=== PATIENT | male | born 1975 | race Two or more races ===

== ENCOUNTER 2023-02-12 03:09 | Emergency (ER) | payer MEDICAID ==
[~2023-02-12] VITALS: Ht 175.3 cm; Wt 108.2 kg
[2023-02-12] MEDS ORDERED: amLODIPine BESYLATE 5 MG TAB PO ONE (03:45)
[2023-02-12 04:29] LABS: Albumin 3.2 g/dL (3.4-5.0); BUN/Creatinine Ratio 10.9 (10.0-20.0); Calcium 8.6 mg/dL (8.5-10.1); Potassium 4.5 mmol/L (3.5-5.1)
[2023-02-12 04:31] LABS: Bilirubin, Total 0.5 mg/dL (0.2-1.0); Total Protein 6.9 g/dL (6.4-8.2)
[2023-02-12 04:35] LABS: Eosinophils # (auto) 0 10 ^3/uL (0-0.8); Hemoglobin 15.8 g/dL (13.5-17.5); Lymphocytes # (auto) 2.1 10 ^3/uL (0.4-5.4); Monocytes # (auto) 0.5 10 ^3/uL (0-1.3); Neutrophils # (auto) 2.2 10 ^3/uL (1.6-8.6); Nucleated Red Blood Cells % 0.1 %
[2023-02-12 04:38] LABS: Basophils # (auto) 0.1 10 ^3/uL (0-0.2); Basophils % (auto) 1.1 % (0.0-2.0); Hematocrit 46.4 % (41.0-53.0); Lymphocytes % (auto) 42.7 % (10.0-50.0); Mean Corpuscular Hemoglobin 34.4 pg (28.0-32.0); Mean Corpuscular Hgb Conc. 34.1 g/dL (32.0-36.0); Monocytes % (auto) 10.2 % (0.0-12.0); Red Blood Cells 4.59 10^6/uL (4.5-5.90); Red Cell Distribution Width 14.6 % (11.8-14.3); White Blood Cell 4.9 10^3/uL (4.4-10.8)
[2023-02-12 06:00] VITALS: BP 156/106
[2023-02-12] MEDS ORDERED: SODIUM CHLORIDE 0.9% 1,000 ML IV ONE (07:00)
[2023-02-12] MEDS ORDERED: LABETALOL HCL 5 MG/ML 4ML SYRINGE IV ONE (07:00)
== END 2023-02-12 07:28 | disposition left against medical advice (07) ==
LOC: ER 03:09 → EDBD 03:09 → ER 07:28
DX: I16.0 Hypertensive urgency (principal); F10.90 Alcohol use, unspecified, uncomplicated; Z98.890 Other specified postprocedural states
CPT/HCPCS: 36415; 70450; 71045; 71250; 74176; 80053; 80320; 84484; 85025; 93005

== ENCOUNTER 2023-08-19 15:35 | Emergency (ER) | payer MEDICAID ==
[~2023-08-19] VITALS: Ht 177.8 cm; Wt 113.0 kg
[2023-08-19 15:53] VITALS: BP 186/125; PULSE 103; RESP 18; O2SAT 79
== END 2023-08-19 15:45 | disposition left against medical advice (07) ==
LOC: ER 15:35 → EDBD 15:35 → ER 15:45
DX: R07.9 Chest pain, unspecified (principal); Z53.21 Procedure and treatment not carried out due to patient leaving prior to being seen by health care provider
CPT/HCPCS: 93005